=== PATIENT | male | born 1965 | race Caucasian/White ===

== ENCOUNTER 2017-06-17 18:14 | Emergency (ER) | payer OTHER ==
[~2017-06-17] VITALS: Ht 180.3 cm; Wt 85.0 kg
[~2017-06-17 18:14] MED LIST: FENO160T PO; INSU100C SQ; LISI-170 PO; LISI2.5T PO; LISI5TAB7 PO; METF10002 PO; METF500T4 PO; SIMV40TA3 PO
[2017-06-17] MEDS ORDERED: SODIUM CHLORIDE 0.9% 1,000 ML IV ONE ×2 (18:23→18:45)
[2017-06-17] MEDS ORDERED: SODIUM CHLORIDE FLUSH 10ML SYR IVF ONE (18:30)
[2017-06-17] MEDS ORDERED: ASPIRIN 81 MG TABLET CHEW PO ONE (18:30)
[2017-06-17] MEDS ORDERED: KETOROLAC 30 MG/1 ML IVPush ONE (19:00)
[2017-06-17] MEDS ORDERED: ONDANSETRON 2MG/ML, 2ML IVPush ONE (19:00)
[2017-06-17] MEDS ORDERED: MORPHINE SULFATE 4 MG/ML, 1ML IVPush PRN (19:00)
[2017-06-17] MEDS ORDERED: ASPIRIN 81 MG TABLET CHEW ONE (19:05)
[2017-06-17] MEDS ORDERED: MORPHINE SULFATE 4 MG/ML, 1ML ONE (19:05)
[2017-06-17] MEDS ORDERED: ONDANSETRON 2MG/ML, 2ML ONE (19:05)
[2017-06-17] MEDS ORDERED: KETOROLAC 30 MG/1 ML ONE (19:05)
[2017-06-17] MEDS ORDERED: SODIUM CHLORIDE 0.9% 1,000ML IVBOLUS ONE (19:30)
[2017-06-17 19:38] LABS: DAU SCREEN DISCLAIMER
[2017-06-17 19:43] LABS: HEMATOCRIT 50.3 % (39.2-51.8); HEMOGLOBIN 17.4 g/dL (13.7-18.0); WHITE BLOOD COUNT 4.9 x10^3/uL (3.4-10)
[2017-06-17 19:57] LABS: BLOOD UREA NITROGEN 11 mg/dL (7-18)
[2017-06-17 20:02] LABS: ASPARTATE AMINO TRANSFERASE 29 U/L (15-37)
[2017-06-17 20:11] LABS: ACETAMINOPHEN < 2 mcg/mL (10-30); IS PT STATUS REG ER OR PRE ER? YES
[2017-06-17 21:03] VITALS: BP 154/89
== END 2017-06-17 21:12 | disposition home or self-care (01) ==
LOC: ED 21:10
DX: R07.9 Chest pain, unspecified (principal); E11.65 Type 2 diabetes mellitus with hyperglycemia; R45.851 Suicidal ideations; Z79.4 Long term (current) use of insulin; I10 Essential (primary) hypertension; E78.5 Hyperlipidemia, unspecified
CPT/HCPCS: 36415; 71010; 80053; 80307; 80329; 82962; 84484; 85025; 93005; 96361; 96374; 96375; 99285; J1885; J2405; J7030; G0480

== ENCOUNTER 2017-06-21 16:53 | Inpatient (IN) | payer OTHER ==
[~2017-06-21] VITALS: Ht 180.3 cm; Wt 86.6 kg
[2017-06-21] MEDS ORDERED: ONDANSETRON 2MG/ML, 2ML ONE (17:36)
[2017-06-21] MEDS ORDERED: MORPHINE SULFATE 4 MG/ML, 1ML ONE ×2 (17:36→18:41)
[2017-06-21 17:38] LABS: PATH.CAST-FLAG NOT PRESENT; SPERM-FLAG NOT PRESENT; SRC-FLAG NOT PRESENT; XTAL-FLAG NOT PRESENT; YLC-FLAG NOT PRESENT
[2017-06-21] MEDS: MORPHINE SULFATE 4 MG/ML, 1ML IVPush PRN ×2 (17:46→18:42)
[2017-06-21] MEDS ORDERED: LISI-167 PO (17:50)
[2017-06-21] MEDS ORDERED: CYCL-259 PO (17:50)
[2017-06-21] MEDS ORDERED: MELO15TA24 PO (17:50)
[2017-06-21 17:57] LABS: HEMATOCRIT 47.2 % (39.2-51.8); HEMOGLOBIN 16.4 g/dL (13.7-18.0); WHITE BLOOD COUNT 5.3 x10^3/uL (3.4-10)
[2017-06-21] MEDS ORDERED: SODIUM CHLORIDE 0.9% 1,000ML IVBOLUS ONE (18:00)
[2017-06-21] MEDS ORDERED: SODIUM CHLORIDE FLUSH 10ML SYR IVF ONE (18:00)
[2017-06-21] MEDS ORDERED: ONDANSETRON 2MG/ML, 2ML IVPush ONE (18:00)
[2017-06-21 18:01] LABS: ASPARTATE AMINO TRANSFERASE 10 U/L (15-37); BLOOD UREA NITROGEN 8 mg/dL (7-18)
[2017-06-21] MEDS ORDERED: OMNIPAQUE 350 MG/ML, 100ML BOTTLE ONE (18:26)
[2017-06-21] MEDS ORDERED: HYDROmorphone 2 MG/ML, 1ML IVPush PRN ×3 (19:00→22:30)
[2017-06-21] MEDS ORDERED: HYDROmorphone 1 MG/ML, 1ML ONE (19:00)
[2017-06-21] MEDS ORDERED: ACETAMINOPHEN 325 MG TABLET PO PRN ×2 (21:00→22:30)
[2017-06-21] MEDS: HEPARIN 5,000 UNITS/ML, 1ML SQ SCH (21:00)
[2017-06-21] MEDS ORDERED: ONDANSETRON 2MG/ML, 2ML IVPush PRN ×2 (21:00→22:30)
[2017-06-21] MEDS: BISACODYL 10 MG SUPP PR SCH (21:00)
[2017-06-21] MEDS: SODIUM CHLORIDE 0.9% 1,000 ML IV SCH (21:25)
[2017-06-21] MEDS: KETOROLAC 30 MG/1 ML IVPush PRN (22:35)
[2017-06-21] MEDS: INSULIN ASPART 100 UNITS/ML, PEN SQ-INSULIN SCH (23:23)
[2017-06-22 01:39] VITALS: BP 130/82
[2017-06-22 01:40] VITALS: BP 129/75
[2017-06-22] MEDS: INSULIN ASPART 100 UNITS/ML, PEN SQ-INSULIN SCH ×4 (05:13→23:00)
[2017-06-22 05:30] LABS: HEMATOCRIT 44.1 % (39.2-51.8); HEMOGLOBIN 15.1 g/dL (13.7-18.0); WHITE BLOOD COUNT 5.1 x10^3/uL (3.4-10)
[2017-06-22 05:49] LABS: ASPARTATE AMINO TRANSFERASE 16 U/L (15-37); BLOOD UREA NITROGEN 8 mg/dL (7-18)
[2017-06-22] MEDS: SODIUM CHLORIDE 0.9% 1,000 ML IV SCH ×2 (07:29→20:06)
[2017-06-22 08:11] VITALS: BP 115/68
[2017-06-22] MEDS: LISINOPRIL 10 MG TABLET PO SCH (08:18)
[2017-06-22] MEDS: HEPARIN 5,000 UNITS/ML, 1ML SQ SCH ×3 (08:18→23:40)
[2017-06-22] MEDS: BISACODYL 10 MG SUPP PR SCH ×2 (08:18→20:08)
[2017-06-22] MEDS ORDERED: INSULIN DETEMIR 100 UNITS/ML, PEN SQ-INSULIN SCH (10:30)
[2017-06-22] MEDS: KETOROLAC 30 MG/1 ML IVPush PRN ×2 (13:45→20:06)
[2017-06-22 14:11] VITALS: BP 133/70
[2017-06-22] MEDS: METOCLOPRAMIDE 5 MG/ML, 2ML IVPush SCH ×2 (18:47→23:40)
[2017-06-22 20:05] VITALS: BP 129/73
[2017-06-23 01:02] VITALS: BP 121/73
[2017-06-23 04:57] LABS: BLOOD UREA NITROGEN 8 mg/dL (7-18)
[2017-06-23] MEDS: INSULIN ASPART 100 UNITS/ML, PEN SQ-INSULIN SCH ×4 (05:00→23:00)
[2017-06-23 05:01] LABS: ASPARTATE AMINO TRANSFERASE 14 U/L (15-37)
[2017-06-23 05:04] LABS: HEMATOCRIT 40.9 % (39.2-51.8); WHITE BLOOD COUNT 4.5 x10^3/uL (3.4-10)
[2017-06-23] MEDS: SODIUM CHLORIDE 0.9% 1,000 ML IV SCH ×2 (05:43→15:22)
[2017-06-23] MEDS: KETOROLAC 30 MG/1 ML IVPush PRN (05:43)
[2017-06-23] MEDS: METOCLOPRAMIDE 5 MG/ML, 2ML IVPush SCH ×4 (05:43→23:47)
[2017-06-23 07:37] VITALS: BP 141/81
[2017-06-23] MEDS: HEPARIN 5,000 UNITS/ML, 1ML SQ SCH ×3 (09:11→23:47)
[2017-06-23] MEDS: LISINOPRIL 10 MG TABLET PO SCH (09:11)
[2017-06-23] MEDS: BISACODYL 10 MG SUPP PR SCH ×2 (09:12→21:00)
[2017-06-23 14:02] VITALS: BP 133/81
[2017-06-23] MEDS ORDERED: POTASSIUM CHLORIDE 40 MEQ in SODIUM CHLORIDE 0.9% 500 ML IV ONE (18:00)
[2017-06-23 21:25] VITALS: BP 164/79
[2017-06-24 02:27] VITALS: BP 143/89
[2017-06-24 04:57] LABS: HEMOGLOBIN 13.7 g/dL (13.7-18.0); WHITE BLOOD COUNT 4.3 x10^3/uL (3.4-10)
[2017-06-24] MEDS: INSULIN ASPART 100 UNITS/ML, PEN SQ-INSULIN SCH ×4 (05:00→23:31)
[2017-06-24] MEDS: METOCLOPRAMIDE 5 MG/ML, 2ML IVPush SCH ×2 (05:23→12:00)
[2017-06-24] MEDS: SODIUM CHLORIDE 0.9% 1,000 ML IV SCH ×3 (05:23→21:17)
[2017-06-24 05:29] LABS: BLOOD UREA NITROGEN 4 mg/dL (7-18)
[2017-06-24 07:25] VITALS: BP 149/78
[2017-06-24] MEDS: BISACODYL 10 MG SUPP PR SCH (08:08)
[2017-06-24] MEDS: LISINOPRIL 10 MG TABLET PO SCH (08:13)
[2017-06-24] MEDS: HEPARIN 5,000 UNITS/ML, 1ML SQ SCH ×4 (08:13→23:25)
[2017-06-24 15:27] VITALS: BP 144/86
[2017-06-24 21:43] VITALS: BP 135/84
[2017-06-25 01:06] VITALS: BP 134/81
[2017-06-25] MEDS: INSULIN ASPART 100 UNITS/ML, PEN SQ-INSULIN SCH ×2 (05:26→11:00)
[2017-06-25 05:36] LABS: HEMATOCRIT 39.8 % (39.2-51.8); HEMOGLOBIN 13.7 g/dL (13.7-18.0); WHITE BLOOD COUNT 3.4 x10^3/uL (3.4-10)
[2017-06-25 05:43] LABS: ASPARTATE AMINO TRANSFERASE 24 U/L (15-37); BLOOD UREA NITROGEN 5 mg/dL (7-18)
[2017-06-25] MEDS: SODIUM CHLORIDE 0.9% 1,000 ML IV SCH (06:50)
[2017-06-25 07:45] VITALS: BP 137/84
[2017-06-25] MEDS: HEPARIN 5,000 UNITS/ML, 1ML SQ SCH (08:33)
[2017-06-25] MEDS: LISINOPRIL 10 MG TABLET PO SCH (08:34)
[2017-06-25] MEDS ORDERED: POTASSIUM CHLORIDE 20 MEQ TAB.ER.PRT PO ONE (09:00)
== END 2017-06-25 11:00 | disposition home or self-care (01) | DRG 390 ==
LOC: ED 18:37 → EDIP 19:46 → 4WST 22:19 → DCLOUNGE 06-25 10:57
PROVIDERS: ADMIT Internal Medicine; ATTEND Internal Medicine
DX: K56.0 Paralytic ileus (principal); E11.65 Type 2 diabetes mellitus with hyperglycemia; I10 Essential (primary) hypertension; E78.5 Hyperlipidemia, unspecified; E87.6 Hypokalemia; N20.0 Calculus of kidney; Z83.3 Family history of diabetes mellitus
CPT/HCPCS: 36415; 74000; 74177; 80048; 80053; 81001; 81003; 82962; 83690; 83735; 84100; 85025; 87324; 96361; 96374; 96375; 96376; J1170; J1644; J1885; J2405; J3480; Q9967; J1815; J2765; J7030; J7040

== ENCOUNTER 2017-07-24 23:43 | Emergency (ER) | payer OTHER ==
[~2017-07-24] VITALS: Ht 177.8 cm; Wt 83.3 kg
[~2017-07-24 23:43] MED LIST changes: +CYCL-259 PO; +LISI-167 PO; +MELO15TA24 PO
[2017-07-25 00:23] VITALS: BP 135/74
== END 2017-07-25 00:25 | disposition home or self-care (01) ==
LOC: ED 23:58
DX: L03.011 Cellulitis of right finger (principal); I10 Essential (primary) hypertension; E11.65 Type 2 diabetes mellitus with hyperglycemia; E78.5 Hyperlipidemia, unspecified
CPT/HCPCS: 99283

== ENCOUNTER 2017-11-28 12:03 | Emergency (ER) | payer OTHER ==
[~2017-11-28] VITALS: Ht 180.3 cm; Wt 79.5 kg
[2017-11-28] MEDS ORDERED: SODIUM CHLORIDE FLUSH 10ML SYR IVF ONE (14:30)
[2017-11-28] MEDS ORDERED: SODIUM CHLORIDE 0.9% 1,000ML IVBOLUS ONE ×2 (14:30→15:30)
[2017-11-28 14:33] LABS: O2 FLOW ROOM AIR L/min; PH, VENOUS 7.399 pH (7.320-7.420)
[2017-11-28 14:38] LABS: BASOPHILS % (AUTO) 0 % (0-1); EOSINOPHILS % (AUTO) 2 % (1-7); LYMPHOCYTES # (AUTO) 1.03 x10^3/uL (1-3.4); LYMPHOCYTES % (AUTO) 21 % (22-44); MD NO; MEAN CORPUSCULAR HEMOGLOBIN 30.8 pg (27.5-34.5); MEAN CORPUSCULAR HGB CONC 34.9 g/dL (33.2-36.2); MEAN CORPUSCULAR VOLUME 88.3 fL (81-97); MEAN PLATELET VOLUME 11.1 fL (7.4-10.4); MONOCYTES # (AUTO) 0.24 x10^3/uL (0.2-0.8); MONOCYTES % (AUTO) 5 % (2-9); NEUTROPHILS # (AUTO) 3.44 x10^3/uL (1.8-6.8); NEUTROPHILS % (AUTO) 72 % (42-75); PLATELET COUNT 145 x10^3/uL (130-400); RED BLOOD COUNT 5.42 x10^6/uL (4.38-5.82); RED CELL DISTRIBUTION WIDTH 13.1 % (9.4-14.8)
[2017-11-28 14:44] LABS: ACETONE, SERUM Small (20mg/dL) mg/dL (Negative)
[2017-11-28 14:50] LABS: ALBUMIN 3.8 g/dL (3.4-5.0); ANION GAP 9 mmol/L (5-15); CALCIUM 9.1 mg/dL (8.5-10.1); CHLORIDE 105 mmol/L (98-107)
[2017-11-28 14:54] LABS: ALANINE AMINOTRANSFERASE 68 U/L (12-78); ALKALINE PHOSPHATASE 229 U/L (45-117); BILIRUBIN,TOTAL 0.8 mg/dL (0.2-1.0); CREATININE 1.04 mg/dL (0.7-1.3); TOTAL PROTEIN 7.1 g/dL (6.4-8.2)
[2017-11-28] MEDS ORDERED: MORPHINE SULFATE 4 MG/ML, 1ML ONE (15:15)
[2017-11-28] MEDS ORDERED: ONDANSETRON 2MG/ML, 2ML ONE (15:16)
[2017-11-28] MEDS ORDERED: INSULIN REGULAR 100 UNITS/ML, 3ML VIAL ONE (15:17)
[2017-11-28] MEDS ORDERED: morphine SULFATE 10 MG/ML, 1ML IVPush ONE (15:30)
[2017-11-28] MEDS ORDERED: INSULIN REGULAR 100 UNITS/ML, 3ML VIAL IVPush ONE (15:30)
[2017-11-28] MEDS ORDERED: ONDANSETRON 2MG/ML, 2ML IVPush ONE (15:30)
[2017-11-28 16:39] LABS: MICROSCOPIC INDICATED
[2017-11-28 16:49] LABS: CULTURE INDICATED? NO
[2017-11-28 17:21] VITALS: BP 109/73
== END 2017-11-28 17:31 | disposition home or self-care (01) ==
LOC: ED 15:47
DX: E11.65 Type 2 diabetes mellitus with hyperglycemia (principal); I10 Essential (primary) hypertension; E78.5 Hyperlipidemia, unspecified
CPT/HCPCS: 36415; 76700; 80053; 81001; 82010; 82803; 82962; 85025; 96361; 96374; 96375; 99285; J2270; J2405; J7030

== ENCOUNTER 2017-12-21 18:32 | Emergency (ER) | payer OTHER ==
[~2017-12-21] VITALS: Ht 180.3 cm; Wt 82.1 kg
[2017-12-21 18:33] VITALS: BP 152/107
[2017-12-21] MEDS ORDERED: ACETAMINOPHEN 500 MG TABLET PO ONE (19:00)
[2017-12-21] MEDS ORDERED: ACETAMINOPHEN 500 MG TABLET ONE (19:06)
== END 2017-12-21 20:29 | disposition home or self-care (01) ==
LOC: ED 19:00
DX: S39.012A Strain of muscle, fascia and tendon of lower back, initial encounter (principal); I10 Essential (primary) hypertension; E11.9 Type 2 diabetes mellitus without complications; X58.XXXA Exposure to other specified factors, initial encounter; Y93.89 Activity, other specified; Y92.89 Other specified places as the place of occurrence of the external cause; Y99.8 Other external cause status
CPT/HCPCS: 72110; 99284; J7512

== ENCOUNTER 2018-11-09 20:51 | Emergency (ER) | payer OTHER ==
[~2018-11-09] VITALS: Ht 180.3 cm; Wt 90.2 kg
[~2018-11-09 20:51] MED LIST changes: +METF500T17 PO; -METF500T4 PO
--- NOTE | 2018-11-09 21:12 | NUR ---
ASSUMED CARE OF PT AT THIS TIME FROM TRIAGE. 53 Y/O M PRESENTS WITH "PAIN RIGHT HERE (POINTS TO LUQ ABD) AND I'M HAVING FLU LIKE SYMPTOMS FOR 1 MONTH, COUGHING, GREENISH PHLEGM, CONGESTION, SORE THROAT." RATES PAIN 8/10 IN STOMACH, BODY ACHES. CONT PULSE OX, BP MONITORS APPLIED. VSS. DENIES CP, SOB, N/V/D. A&OX4. CALL LIGHT IN REACH. FALL PRECUATIONS IN PLACE. AWAITING EVALUATION BY ERP.
--- NOTE | 2018-11-09 21:27 | NUR ---
DR. GONSALEZ AT BEDSIDE FOR EVALUATION
[2018-11-09] MEDS ORDERED: MAALOX/HYOSCYAMINE/LIDOCAINE 45 ML BTL PO ONE (21:30)
[2018-11-09] MEDS ORDERED: MAALOX/HYOSCYAMINE/LIDOCAINE 45 ML BTL ONE (21:40)
--- NOTE | 2018-11-09 21:44 | NUR ---
PT MEDICATED NOTED PER ORDER FOR ABD PAIN. DENIES NEED TO USE RESTROOM, AWARE UA SAMPLE IS NEEDED. CALL LIGHT IN REACH. RESTING IN POSITION OF COMFORT. VSS.
[2018-11-09 22:03] LABS: BASOPHILS # (AUTO) 0.01 x10^3/uL (0-0.1); BASOPHILS % (AUTO) 0 % (0-1); EOSINOPHILS % (AUTO) 2 % (1-7); LYMPHOCYTES # (AUTO) 1.14 x10^3/uL (1-3.4); LYMPHOCYTES % (AUTO) 25 % (22-44); MD NO; MEAN CORPUSCULAR HEMOGLOBIN 31.1 pg (27.5-34.5); MEAN CORPUSCULAR VOLUME 89.1 fL (81-97); MEAN PLATELET VOLUME 10.1 fL (7.4-10.4); MONOCYTES # (AUTO) 0.27 x10^3/uL (0.2-0.8); MONOCYTES % (AUTO) 6 % (2-9); NEUTROPHILS # (AUTO) 3.04 x10^3/uL (1.8-6.8); NEUTROPHILS % (AUTO) 67 % (42-75); PLATELET COUNT 150 x10^3/uL (130-400); RED BLOOD COUNT 4.94 x10^6/uL (4.38-5.82); RED CELL DISTRIBUTION WIDTH 13.1 % (9.4-14.8)
[2018-11-09 22:15] LABS: ALANINE AMINOTRANSFERASE 28 U/L (12-78); ALBUMIN 3.4 g/dL (3.4-5.0); ANION GAP 8 mmol/L (5-15); CALCIUM 8.7 mg/dL (8.5-10.1); CHLORIDE 110 mmol/L (98-107)
--- NOTE | 2018-11-09 22:16 | NUR ---
PT AMBULATED TO RESTROOM WITH STEADY GAIT. UA COLLECTED AND WALKED TO LAB. PT REPORTS ABD PAIN IMPROVED TO 6/10, DISCUSSED WITH DR. GONSALEZ, AWARE, NO NEW ORDERS RECEIVED. CALL LIGHT IN REACH. FALL PRECAUTIONS IN PLACE. VSS.
[2018-11-09 22:18] LABS: CREATININE 0.95 mg/dL (0.7-1.3)
[2018-11-09 22:19] LABS: ALKALINE PHOSPHATASE 124 U/L (45-117); BILIRUBIN,TOTAL 0.6 mg/dL (0.2-1.0); TOTAL PROTEIN 6.4 g/dL (6.4-8.2)
[2018-11-09 22:32] LABS: MICROSCOPIC NOT IND
--- NOTE | 2018-11-09 22:33 | NUR ---
UA RESULTS CONTINUE PENDING
[2018-11-09 22:34] LABS: CULTURE INDICATED? NO
--- NOTE | 2018-11-09 22:48 | NUR ---
PT UP FOR RECHECK
--- NOTE | 2018-11-09 23:05 | NUR ---
DR. GONSALEZ AT BEDSIDE FOR RECHECK.
--- NOTE | 2018-11-09 23:10 | NUR ---
IN TO DISCHARGE PT, PT REQUESTING CODEINE COUGHT SYRUP AND MEDICATION FOR SLEEP, NO RX FOR CODEINE COUGH SYRUP PER , PT TO PROVIDED RX FOR TESSALON PERLES AND OTC ROBITUSSIN DM ORIGINALLY DISCUSSED WITH PT. NEW RX PROVIDED FOR SLEEP, HYDROXYAZINE.
--- NOTE | 2018-11-09 23:25 | NUR ---
BACK TO DISCHARGE PT, PT REQUESTING RX FOR PAIN MEDICATION, DISCUSSED WITH DR. GONSALEZ, PT TO TAKE OTC TYLENOL FOR PAIN, NO RX FOR PAIN MEDICATION, PT UPSET AND LEFT ER WITH PROVIDED PAPERWORK, AMBULATED WITH STEADY GAIT.
[2018-11-09 23:29] VITALS: BP 138/95
== END 2018-11-09 23:36 | disposition home or self-care (01) ==
LOC: ED 23:05
DX: R10.12 Left upper quadrant pain (principal); R05 Cough; E11.65 Type 2 diabetes mellitus with hyperglycemia; E78.5 Hyperlipidemia, unspecified; I10 Essential (primary) hypertension
CPT/HCPCS: 36415; 80053; 81003; 83690; 85025; 86677; 99283

== ENCOUNTER 2018-12-10 21:12 | Emergency (ER) | payer OTHER ==
[~2018-12-10] VITALS: Ht 180.3 cm; Wt 86.0 kg
--- NOTE | 2018-12-10 21:34 | NUR ---
PT WITH CP AND OTHER MULTIPLE COMPLAINTS OF PAIN, EKG DONE IN TRIAGE, MD AT CURRENTLY. PT ALSO C/O OF VOMITING ONCE PRIOR TO COMING TO ER
[2018-12-10 21:55] LABS: BASOPHILS # (AUTO) 0.02 x10^3/uL (0-0.1); BASOPHILS % (AUTO) 0 % (0-1); EOSINOPHILS # (AUTO) 0.11 x10^3/uL (0-0.4); EOSINOPHILS % (AUTO) 2 % (1-7); LYMPHOCYTES # (AUTO) 1.13 x10^3/uL (1-3.4); LYMPHOCYTES % (AUTO) 23 % (22-44); MD NO; MEAN CORPUSCULAR HEMOGLOBIN 30.9 pg (27.5-34.5); MEAN CORPUSCULAR VOLUME 88.3 fL (81-97); MEAN PLATELET VOLUME 10.8 fL (7.4-10.4); MONOCYTES # (AUTO) 0.22 x10^3/uL (0.2-0.8); MONOCYTES % (AUTO) 5 % (2-9); NEUTROPHILS # (AUTO) 3.39 x10^3/uL (1.8-6.8); NEUTROPHILS % (AUTO) 70 % (42-75); PLATELET COUNT 162 x10^3/uL (130-400); RED BLOOD COUNT 5.26 x10^6/uL (4.38-5.82); RED CELL DISTRIBUTION WIDTH 13.1 % (9.4-14.8)
[2018-12-10] MEDS ORDERED: ASPIRIN 81 MG TABLET CHEW PO ONE (22:00)
[2018-12-10 22:05] LABS: ALANINE AMINOTRANSFERASE 71 U/L (12-78); ALBUMIN 3.7 g/dL (3.4-5.0); ANION GAP 12 mmol/L (5-15); CALCIUM 8.6 mg/dL (8.5-10.1); CHLORIDE 108 mmol/L (98-107); CREATININE 1.03 mg/dL (0.7-1.3)
[2018-12-10 22:09] LABS: ALKALINE PHOSPHATASE 244 U/L (45-117); BILIRUBIN,TOTAL 0.7 mg/dL (0.2-1.0); TOTAL PROTEIN 6.7 g/dL (6.4-8.2); TROPONIN I < 0.015 ng/mL (0.000-0.045)
--- NOTE | 2018-12-10 22:15 | NUR ---
PT WATCHING TV AND RESTING QUIETLY, DENIES CURRENT CP OR SOB
[2018-12-10] MEDS ORDERED: ASPIRIN 81 MG TABLET CHEW ONE (22:42)
--- NOTE | 2018-12-10 22:50 | NUR ---
PT AMBULATORY TO RESTROOM WITH STEADY GAIT NOTED TO OBTAIN URINE SAMPLE.
--- NOTE | 2018-12-10 22:56 | NUR ---
URINE SAMPLE PROVIDED BY PT, SENT TO LAB
[2018-12-10 23:05] LABS: MICROSCOPIC NOT IND
[2018-12-10 23:09] LABS: CULTURE INDICATED? NO
--- NOTE | 2018-12-10 23:48 | NUR ---
PO CHALLENGE PROVIDED TO PT
[2018-12-11 00:01] VITALS: BP 164/96
--- NOTE | 2018-12-11 00:30 | NUR ---
Patient/Caregiver given discharge instructions and they have confirmed that they understand the instructions. Patient ambulatory with steady gait.
== END 2018-12-11 00:50 | disposition home or self-care (01) ==
LOC: ED 23:30
DX: R07.89 Other chest pain (principal); R35.0 Frequency of micturition; I10 Essential (primary) hypertension; E11.9 Type 2 diabetes mellitus without complications; F32.9 Major depressive disorder, single episode, unspecified; E11.65 Type 2 diabetes mellitus with hyperglycemia; R11.2 Nausea with vomiting, unspecified
CPT/HCPCS: 36415; 71045; 80053; 81003; 84484; 85025; 85379; 93005; 99284

== ENCOUNTER 2019-11-15 14:33 | Inpatient (IN) | payer OTHER ==
[~2019-11-15] VITALS: Ht 180.3 cm; Wt 83.6 kg
[~2019-11-15 14:33] MED LIST changes: +SIMV40TA20 PO; -SIMV40TA3 PO
[2019-11-15] MEDS ORDERED: SODIUM CHLORIDE FLUSH 10ML SYR IVF ONE (15:30)
[2019-11-15] MEDS ORDERED: SODIUM CHLORIDE 0.9% 1,000ML IVBOLUS ONE ×2 (15:30→19:30)
--- NOTE | 2019-11-15 15:34 | NUR ---
[facility] ACCOMPANIED BY FAMILY. PT REPORTS "FOR ABOUT A MONTH I'VE HAD NO APPETITE, I CAN ONLY KEEP WATER DOWN, I'M NOT THROWING UP THOUGHT, I JUST DON'T I FEEL WEAK AND FATIGUED, AND MY STOMACH IS HURTING (POINTS TO EPIGASTRIC AREA)." CONT PULSE OX, BP, CARDIAC MONITORS APPLIED. VSS. PT REPORTS "I HAVEN'T TAKEN ANY OF MY MEDICATIONS IN LAST 3 WEEKS, NO METFORMIN OR ANYTHING." CALL LIGHT IN REACH. FALL PRECAUTIONS IN PLACE. SIDE RAILS UPX2. A&OX4. DENIES ANY SIMON, VISUAL CHANGES OR DIFFICULTY, DIARRHEA, CP, SOB. DENIES ANY URINARY PAIN, DIFFICULTY OR INCREASE IN FREQUENCY. FAMILY/CAREGIVER AT BEDSIDE. RATES ABD PAIN 04/21. AWAITING EVAL BY ERP.
--- NOTE | 2019-11-15 15:45 | NUR ---
DR. MORENO AT BEDSIDE FOR EVALUATION. AWAITING ADDITIONAL ORDERS
[2019-11-15 15:47] LABS: O2 FLOW ROOM AIR L/min; PH, VENOUS 7.377 pH (7.320-7.420)
[2019-11-15 15:58] LABS: BASOPHILS # (AUTO) 0.01 x10^3/uL (0-0.1); BASOPHILS % (AUTO) 0 % (0-1); EOSINOPHILS # (AUTO) 0.15 x10^3/uL (0-0.4); EOSINOPHILS % (AUTO) 3 % (1-7); LYMPHOCYTES % (AUTO) 18 % (22-44); MD NO; MEAN CORPUSCULAR HEMOGLOBIN 30.9 pg (27.5-34.5); MEAN CORPUSCULAR HGB CONC 33.8 g/dL (33.2-36.2); MEAN CORPUSCULAR VOLUME 91.4 fL (81-97); MEAN PLATELET VOLUME 12.3 fL (7.4-10.4); MONOCYTES # (AUTO) 0.28 x10^3/uL (0.2-0.8); MONOCYTES % (AUTO) 5 % (2-9); NEUTROPHILS # (AUTO) 4.59 x10^3/uL (1.8-6.8); NEUTROPHILS % (AUTO) 75 % (42-75); PLATELET COUNT 141 x10^3/uL (130-400); RED BLOOD COUNT 6.01 x10^6/uL (4.38-5.82); RED CELL DISTRIBUTION WIDTH 12.8 % (9.4-14.8)
--- NOTE | 2019-11-15 15:59 | NUR ---
BEDSIDE REPORT AND CARE TO ARABELLA MELENDREZ AT THIS TIME.
[2019-11-15 16:01] LABS: ALANINE AMINOTRANSFERASE 22 U/L (12-78); ALBUMIN 3.7 g/dL (3.4-5.0); ANION GAP 15 mmol/L (5-15); CALCIUM 9.9 mg/dL (8.5-10.1); CHLORIDE 114 mmol/L (98-107); CREATININE 1.45 mg/dL (0.7-1.3)
[2019-11-15] MEDS ORDERED: GABA300C10 PO (16:04)
[2019-11-15] MEDS ORDERED: METF500T17 PO (16:04)
[2019-11-15] MEDS ORDERED: GING550C2 PO (16:04)
[2019-11-15] MEDS ORDERED: NAPR-685 PO (16:04)
[2019-11-15 16:14] LABS: ALKALINE PHOSPHATASE 175 U/L (45-117); BILIRUBIN,TOTAL 1.1 mg/dL (0.2-1.0); TOTAL PROTEIN 7.4 g/dL (6.4-8.2)
[2019-11-15 16:16] LABS: ACETONE, SERUM Large (80mg/dL) mg/dL (Negative)
[2019-11-15] MEDS ORDERED: SODIUM CHLORIDE FLUSH 10ML SYR IVF PRN (20:00)
[2019-11-15] MEDS ORDERED: LACTATED RINGERS 1,000 ML IV SCH (20:30)
[2019-11-15] MEDS ORDERED: BISACODYL 10 MG SUPP PR PRN (20:30)
[2019-11-15] MEDS ORDERED: PROMETHAZINE 25 MG/ML, 1ML IM PRN (20:30)
[2019-11-15] MEDS ORDERED: LACTATED RINGERS 1,000 ML IVBOLUS ONE (20:30)
[2019-11-15] MEDS ORDERED: ONDANSETRON 2MG/ML, 2ML IVPush PRN (20:30)
[2019-11-15] MEDS ORDERED: hydrALAzine 20 MG/ML, 1ML IVPush PRN (20:30)
[2019-11-15] MEDS ORDERED: POLYETHYLENE GLYCOL 17 GM PACKET PO PRN (20:30)
[2019-11-15 21:27] LABS: ESTIMATED AVERAGE GLUCOSE 355 mg/dL (0-126)
[2019-11-15 21:40] VITALS: BP 128/87
[2019-11-15] MEDS: HEPARIN 5,000 UNITS/ML, 1ML SQ SCH (22:09)
[2019-11-15] MEDS: INSULIN LISPRO 100 UNITS/ML, PEN SQ-INSULIN SCH (22:32)
[2019-11-15] MEDS: LACTATED RINGERS 1,000 ML IV SCH (23:40)
[2019-11-16 02:01] VITALS: BP 118/83
[2019-11-16 03:01] LABS: MICROSCOPIC AUTO
[2019-11-16 03:03] LABS: CULTURE INDICATED? NO
[2019-11-16] MEDS: LACTATED RINGERS 1,000 ML IV SCH ×4 (04:29→20:00)
[2019-11-16] MEDS: HEPARIN 5,000 UNITS/ML, 1ML SQ SCH ×3 (06:17→21:34)
[2019-11-16 06:19] LABS: BASOPHILS # (AUTO) 0.01 x10^3/uL (0-0.1); BASOPHILS % (AUTO) 0 % (0-1); EOSINOPHILS # (AUTO) 0.12 x10^3/uL (0-0.4); EOSINOPHILS % (AUTO) 2 % (1-7); LYMPHOCYTES # (AUTO) 1.32 x10^3/uL (1-3.4); LYMPHOCYTES % (AUTO) 24 % (22-44); MD NO; MEAN CORPUSCULAR HEMOGLOBIN 31.8 pg (27.5-34.5); MEAN CORPUSCULAR HGB CONC 34.3 g/dL (33.2-36.2); MEAN CORPUSCULAR VOLUME 92.7 fL (81-97); MEAN PLATELET VOLUME 11.4 fL (7.4-10.4); MONOCYTES # (AUTO) 0.27 x10^3/uL (0.2-0.8); MONOCYTES % (AUTO) 5 % (2-9); NEUTROPHILS # (AUTO) 3.83 x10^3/uL (1.8-6.8); NEUTROPHILS % (AUTO) 69 % (42-75); PLATELET COUNT 112 x10^3/uL (130-400); RED BLOOD COUNT 5.26 x10^6/uL (4.38-5.82); RED CELL DISTRIBUTION WIDTH 12.6 % (9.4-14.8)
[2019-11-16 06:26] LABS: ANION GAP 8 mmol/L (5-15); CALCIUM 8.6 mg/dL (8.5-10.1); CHLORIDE 121 mmol/L (98-107)
[2019-11-16 06:30] LABS: ALANINE AMINOTRANSFERASE 18 U/L (12-78); ALKALINE PHOSPHATASE 134 U/L (45-117); BILIRUBIN,TOTAL 0.9 mg/dL (0.2-1.0); CREATININE 0.92 mg/dL (0.7-1.3); TOTAL PROTEIN 5.9 g/dL (6.4-8.2)
[2019-11-16 06:50] VITALS: BP 131/85
[2019-11-16] MEDS: INSULIN LISPRO 100 UNITS/ML, PEN SQ-INSULIN SCH ×4 (07:59→20:18)
[2019-11-16] MEDS: SENNA/DOCUSATE TABLET PO SCH (07:59)
[2019-11-16] MEDS: INSULIN GLARGINE 100 UNITS/ML, PEN SQ-INSULIN SCH ×2 (08:48→20:18)
[2019-11-16 12:12] LABS: ANION GAP 10 mmol/L (5-15); CHLORIDE 117 mmol/L (98-107); CREATININE 1.02 mg/dL (0.7-1.3)
[2019-11-16 14:15] VITALS: BP 109/65
[2019-11-16 18:45] VITALS: BP 106/66
[2019-11-16] MEDS ORDERED: LACTATED RINGERS 1,000 ML IV SCH (20:30)
[2019-11-17] MEDS: LACTATED RINGERS 1,000 ML IV SCH ×3 (00:11→07:50)
[2019-11-17 00:22] VITALS: BP 102/56
[2019-11-17] MEDS: HEPARIN 5,000 UNITS/ML, 1ML SQ SCH ×3 (05:43→21:42)
[2019-11-17 07:22] VITALS: BP 126/79
[2019-11-17] MEDS: SENNA/DOCUSATE TABLET PO SCH (07:48)
[2019-11-17] MEDS: INSULIN GLARGINE 100 UNITS/ML, PEN SQ-INSULIN SCH ×2 (07:48→20:35)
[2019-11-17] MEDS: INSULIN LISPRO 100 UNITS/ML, PEN SQ-INSULIN SCH ×4 (07:49→20:36)
[2019-11-17 13:25] VITALS: BP 117/69
[2019-11-17 19:55] VITALS: BP 120/74
[2019-11-17] MEDS: ACETAMINOPHEN 325 MG TABLET PO PRN (20:32)
[2019-11-17] MEDS ORDERED: LACTATED RINGERS 1,000 ML IV SCH (23:30)
[2019-11-18 00:26] VITALS: BP 117/78
[2019-11-18] MEDS: HEPARIN 5,000 UNITS/ML, 1ML SQ SCH (05:48)
[2019-11-18 05:50] LABS: ANION GAP 3 mmol/L (5-15); CALCIUM 7.8 mg/dL (8.5-10.1); CHLORIDE 115 mmol/L (98-107); CREATININE 0.69 mg/dL (0.7-1.3)
[2019-11-18] MEDS: ACETAMINOPHEN 325 MG TABLET PO PRN (06:14)
[2019-11-18 07:04] VITALS: BP 130/80
[2019-11-18] MEDS ORDERED: POTASSIUM CHLORIDE 20 MEQ TAB.ER.PRT PO ONE (08:00)
[2019-11-18] MEDS: INSULIN GLARGINE 100 UNITS/ML, PEN SQ-INSULIN SCH (08:02)
[2019-11-18] MEDS: SENNA/DOCUSATE TABLET PO SCH (08:02)
[2019-11-18] MEDS: INSULIN LISPRO 100 UNITS/ML, PEN SQ-INSULIN SCH ×2 (08:03→11:07)
[2019-11-18] MEDS ORDERED: INSU100I13 SQ-INSULIN (09:16)
[2019-11-18] MEDS ORDERED: INSU100I11 SQ-INSULIN (09:16)
== END 2019-11-18 12:50 | disposition home or self-care (01) | DRG 638 ==
LOC: ED 19:37 → EDIP 19:53 → 3N 21:04 → DCLOUNGE 11-18 12:43
PROVIDERS: ADMIT Family Medicine; ATTEND Family Medicine
DX: E11.00 Type 2 diabetes mellitus with hyperosmolarity without nonketotic hyperglycemic-hyperosmolar coma (NKHHC) (principal); E87.0 Hyperosmolality and hypernatremia; N17.9 Acute kidney failure, unspecified; D75.1 Secondary polycythemia; E11.65 Type 2 diabetes mellitus with hyperglycemia; E78.5 Hyperlipidemia, unspecified; E86.0 Dehydration; G89.29 Other chronic pain; G47.33 Obstructive sleep apnea (adult) (pediatric); M54.2 Cervicalgia; M54.9 Dorsalgia, unspecified; I10 Essential (primary) hypertension; K59.00 Constipation, unspecified; Z79.84 Long term (current) use of oral hypoglycemic drugs; Z83.3 Family history of diabetes mellitus; Z87.442 Personal history of urinary calculi; Z91.14 Patient's other noncompliance with medication regimen; Z79.899 Other long term (current) drug therapy
CPT/HCPCS: 36415; 74021; 80048; 80053; 81001; 82010; 82803; 82962; 83036; 83690; 83930; 85025; 93005; 99285; G0378; J1644; J1815; J7030; J7120

== ENCOUNTER 2020-06-20 19:41 | Emergency (ER) | payer OTHER ==
[~2020-06-20] VITALS: Ht 180.3 cm; Wt 83.9 kg
[~2020-06-20 19:41] MED LIST changes: +GABA300C10 PO; +GING550C2 PO; +INSU100I11 SQ-INSULIN; +INSU100I13 SQ-INSULIN; +NAPR-685 PO
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
[2020-06-20 21:00] VITALS: BP 154/106
--- NOTE | 2020-06-20 21:01 | NUR ---
PT RESTING ON GURNEY, APPEARS COMFORTABLE, NAD, NO CHANGE IN CONDITION. PT TO BE MEDICATED AND RECEIVE RADS. FORREST SIMMONS MD AT BS FOR EVAL AND POC.
--- NOTE | 2020-06-20 21:13 | NUR ---
PT TO RADIOLOGY VIA [facility], NAD, NO CHANGE IN CONDITION.
[2020-06-20 22:28] LABS: BASOPHILS # (AUTO) 0.03 x10^3/uL (0-0.1); BASOPHILS % (AUTO) 1 % (0-1); EOSINOPHILS # (AUTO) 0.11 x10^3/uL (0-0.4); EOSINOPHILS % (AUTO) 2 % (1-7); LYMPHOCYTES # (AUTO) 1.34 x10^3/uL (1-3.4); LYMPHOCYTES % (AUTO) 24 % (22-44); MD NO; MEAN CORPUSCULAR HEMOGLOBIN 30.5 pg (27.5-34.5); MEAN CORPUSCULAR HGB CONC 33.3 g/dL (33.2-36.2); MEAN CORPUSCULAR VOLUME 91.8 fL (81-97); MEAN PLATELET VOLUME 9.8 fL (7.4-10.4); MONOCYTES # (AUTO) 0.32 x10^3/uL (0.2-0.8); MONOCYTES % (AUTO) 6 % (2-9); NEUTROPHILS # (AUTO) 3.73 x10^3/uL (1.8-6.8); NEUTROPHILS % (AUTO) 68 % (42-75); PLATELET COUNT 161 x10^3/uL (130-400); RED BLOOD COUNT 5.73 x10^6/uL (4.38-5.82); RED CELL DISTRIBUTION WIDTH 13.2 % (9.4-14.8)
[2020-06-20 22:39] LABS: ALBUMIN 3.8 g/dL (3.4-5.0); ANION GAP 6 mmol/L (5-15); CHLORIDE 110 mmol/L (98-107); CREATININE 0.97 mg/dL (0.7-1.3)
== END 2020-06-20 23:02 | disposition home or self-care (01) ==
LOC: ED 22:30
DX: S39.012A Strain of muscle, fascia and tendon of lower back, initial encounter (principal); S33.5XXA Sprain of ligaments of lumbar spine, initial encounter; I10 Essential (primary) hypertension; E78.5 Hyperlipidemia, unspecified; E11.65 Type 2 diabetes mellitus with hyperglycemia; V49.49XA Driver injured in collision with other motor vehicles in traffic accident, initial encounter; Y93.89 Activity, other specified; Y92.410 Unspecified street and highway as the place of occurrence of the external cause; Y99.8 Other external cause status
CPT/HCPCS: 36415; 72110; 80048; 82040; 85025; 99284

== ENCOUNTER 2021-03-06 11:52 | Emergency (ER) | payer SELFPAY ==
[~2021-03-06] VITALS: Ht 180.3 cm; Wt 74.9 kg
[~2021-03-06 11:52] MED LIST changes: -CYCL-259 PO; +CYCL10TA2 PO
[2021-03-06 12:44] LABS: BASOPHILS % (AUTO) 0 % (0-1); EOSINOPHILS % (AUTO) 2 % (1-7); LYMPHOCYTES % (AUTO) 27 % (22-44); MEAN CORPUSCULAR HEMOGLOBIN 31.5 pg (27.5-34.5); MEAN CORPUSCULAR HGB CONC 34.3 g/dL (33.2-36.2); MEAN PLATELET VOLUME 10.7 fL (7.4-10.4); MONOCYTES % (AUTO) 5 % (2-9); NEUTROPHILS % (AUTO) 66 % (42-75); PLATELET COUNT 142 x10^3/uL (130-400); RED BLOOD COUNT 4.87 x10^6/uL (4.38-5.82); RED CELL DISTRIBUTION WIDTH 12.9 % (9.4-14.8)
[2021-03-06 12:47] LABS: MD NO
[2021-03-06 12:55] LABS: ALBUMIN 3.7 g/dL (3.4-5.0); ANION GAP 8 mmol/L (5-15); CALCIUM 9.4 mg/dL (8.5-10.1); CHLORIDE 110 mmol/L (98-107)
[2021-03-06 12:59] LABS: ALANINE AMINOTRANSFERASE 38 U/L (12-78); ALKALINE PHOSPHATASE 252 U/L (45-117); BILIRUBIN,TOTAL 0.9 mg/dL (0.2-1.0); CREATININE 1.02 mg/dL (0.7-1.3); TOTAL PROTEIN 7.1 g/dL (6.4-8.2)
--- NOTE | 2021-03-06 13:45 | NUR ---
PT AMBULATORY TO ROOM AT THIS TIME.
--- NOTE | 2021-03-06 14:23 | NUR ---
Pt ambulatory to bathroom for UA at this time.
[2021-03-06 15:08] LABS: MICROSCOPIC NOT IND
[2021-03-06] MEDS ORDERED: OMNIPAQUE 350 MG/ML, 100ML BOTTLE ONE (16:15)
[2021-03-06] MEDS ORDERED: KETOROLAC 30 MG/1 ML ONE (16:49)
[2021-03-06] MEDS ORDERED: HYDROmorphone 1 MG/ML, 1ML INJ IV ONE (17:00)
[2021-03-06] MEDS ORDERED: KETOROLAC 30 MG/1 ML IVPush ONE (17:00)
[2021-03-06 17:52] VITALS: BP 132/87
--- NOTE | 2021-03-06 17:54 | NUR ---
Pt states relief from pain prior to d/c, denied stronger pain med.
== END 2021-03-06 19:55 | disposition home or self-care (01) ==
LOC: ED 14:08
DX: N13.2 Hydronephrosis with renal and ureteral calculous obstruction (principal); K59.00 Constipation, unspecified; R10.9 Unspecified abdominal pain; I10 Essential (primary) hypertension; E11.65 Type 2 diabetes mellitus with hyperglycemia; E78.5 Hyperlipidemia, unspecified
CPT/HCPCS: 36415; 74018; 74177; 80053; 81003; 82962; 83690; 85025; 96374; 99285; J1885; Q9967